=== PATIENT | female | born 1935 | race Caucasian/White ===

== ENCOUNTER → 2016-11-10 | Outpatient (CLI) | payer BC ==
[~2016-11-10] MED LIST: ASPI81TA28 PO; ATOR-24 PO; DAPS100T PO; DPS25 PO; HYDR-4079 PO; HYDR-600 PO; LEVO175T PO; LSN/20125 PO; SIMV20TA2 PO; SYN200 PO
--- NOTE | 2016-11-10 14:51 | DIAGNOSTIC IMAGING REPORT ---
RIGHT WRIST 3 VIEWS HISTORY: RIGHT WRIST PAIN Right COMPARISON: None. FINDINGS: No acute fracture or dislocation. Mild soft tissue swelling. 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 No acute fracture or dislocation. A few small well-corticated ossific densities along the dorsal and volar aspect of the wrist may be due to an old injury or chronic degenerative change. Severe degenerative changes at the STT and first carpometacarpal joint. 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 IMPRESSION: 1. No acute fracture or dislocation. 2. Chronic/degenerative changes as described above. 3. Scapholunate dissociation. Electronically signed by: Freddie Heath M.D. 11/10/2016 2:50 PM Dictated Date/Time: 11/10/2016 2:47 PM
== END | disposition home or self-care (01) ==
LOC: C.RDSM 14:40
PROVIDERS: ATTEND Physician Assistant
DX: S63.511A Sprain of carpal joint of right wrist, initial encounter (principal); X58.XXXA Exposure to other specified factors, initial encounter

== ENCOUNTER → 2017-03-21 | Day surgery (SDC) | payer BC ==
[~2017-03-21] VITALS: Ht 160 cm; Wt 77.2 kg
[~2017-03-21] MED LIST changes: +OPTIRAY 320 IV PRN; +PATIENT'S HEIGHT AND/OR WEIGHT NEEDED SCH; +SODIUM BICARBONATE 8.4% INJ 100 MEQ in STERILE WATER 1000 ML 1,000 ML IV SCH; +SODIUM CHLORIDE 0.9% 1000ML 1,000 ML IV SCH
[2017-03-21 06:35] VITALS: BP 137/58; PULSE 62; TEMP 36.5; O2SAT 93; Ht 160 cm; Wt 77.2 kg
[2017-03-21 09:44] VITALS: BP 167/65; PULSE 62; TEMP 36; O2SAT 94
--- NOTE | 2017-03-21 10:10 | DIAGNOSTIC IMAGING REPORT ---
NECK CTA HISTORY: Bilateral carotid artery stenosis with occlusion. TECHNIQUE: Multiaxial CT images of the neck were performed following the intravenous administration of contrast to evaluate the major cervical vessels. Maximum intensity projection images were also obtained. All measurements were calculated based on NASCET criteria. A dose lowering technique was utilized adhering to the principles of ALARA. COMPARISON STUDY: None. FINDINGS: Normal caliber aortic arch. Mild calcified plaque at the proximal left subclavian artery without significant stenosis. Severe calcified plaque at the right carotid bifurcation resulting in approximately 80% focal stenosis at the carotid bifurcation and origin of the right internal carotid artery. Mild to moderate calcified and noncalcified plaque within the proximal left internal carotid artery without significant stenosis. The left common carotid artery and proximal to mid right common carotid artery are widely patent. No significant stenosis or occlusion within the bilateral vertebral arteries. There are retention cysts within the left maxillary sinus. Visualized brain parenchyma and orbits are unremarkable. No pneumothorax. IMPRESSION: 1. Approximately 80% focal stenosis at the right carotid bifurcation and origin of the right internal carotid artery due to the calcified plaque. 2. No significant stenosis within the left carotid arteries or vertebral arteries. Electronically signed by: Freddie Heath M.D. 03/21/2017 10:09 AM Dictated Date/Time: 03/21/2017 10:00 AM
== END | disposition home or self-care (01) ==
LOC: C.MTU 06:29 → EDSTATUS 09:20
PROVIDERS: ATTEND Surgery Vascular Surgery
DX: I65.23 Occlusion and stenosis of bilateral carotid arteries (principal)

== ENCOUNTER 2017-05-17 05:59 | Inpatient (IN) | payer BC, OTHER ==
--- NOTE | 2017-04-13 14:15 | PAT Medication Instructions ---
Service Date Apr 13, 2017. Current Home Medication List Aspirin (Aspirin Ec), 81 MG PO QAM Atorvastatin (Lipitor), 1 TAB PO HS Dapsone (Dapsone), 50 MG PO QAM Hctz/Lisinopril (Zestoretic 20MG/12.5MG), 1 TAB PO QAM Hydrocodone/Acetaminophen 10MG/325MG (Wendell 10MG/325MG), 1 TAB PO Q4H PRN for Pain Levothyroxine Sodium (Synthroid), 175 MCG PO DAILYBB Medication Instructions For Your Scheduled Surgery - Hold the following medications the morning of surgery: Hctz/Lisinopril (Zestoretic 20MG/12.5MG), 1 TAB PO QAM - Take the following medications the morning of surgery with a sip of water OTHERWISE NOTHING TO EAT OR DRINK AFTER MIDNIGHT: Hydrocodone/Acetaminophen 10MG/325MG (Wendell 10MG/325MG), 1 TAB PO Q4H PRN for Pain (may take if needed up to 4 hours prior to surgery) Dapsone (Dapsone), 50 MG PO QAM (takes for skin) Aspirin (Aspirin Ec), 81 MG PO QAM Levothyroxine Sodium (Synthroid), 175 MCG PO DAILYBB - Take the following medications as scheduled the night before surgery: Hydrocodone/Acetaminophen 10MG/325MG (Wendell 10MG/325MG), 1 TAB PO Q4H PRN for Pain Atorvastatin (Lipitor), 1 TAB PO HS If you have any questions please call us at [phone] or [phone] or [phone]
--- NOTE | 2017-04-13 15:53 | DIAGNOSTIC IMAGING REPORT ---
CHEST 2 VIEWS ROUTINE CLINICAL HISTORY: Preoperative evaluation. COMPARISON STUDY: Chest radiograph September 21, 2011. FINDINGS: Lung volumes are normal. There is no pneumothorax or pleural effusion. Blunting of the left costophrenic angle is chronic. There is no evidence of pulmonary edema. Cardiomediastinal silhouette is normal. Lateral view demonstrates suspected gallstones within the gallbladder. IMPRESSION: 1. No acute cardiopulmonary findings. 2. Cholelithiasis. Electronically signed by: Otoniel Cisse M.D. 04/13/2017 3:52 PM Dictated Date/Time: 04/13/2017 3:51 PM
[2017-04-13 16:09] LABS: BUN/CREATININE RATIO 26.8 (10-20); CALCIUM 8.1 mg/dl (8.5-10.1); CREATININE 1.3 mg/dl (0.60-1.20); POTASSIUM 4.2 mmol/L (3.5-5.1)
[2017-04-13 16:11] LABS: PROTHROMBIN TIME (PATIENT) 10.3 SECONDS (9.0-12.0)
[2017-04-13 18:45] LABS: BASO % 1.1 %; BASO ABS # 0.08 K/uL (0-0.2); COMPLETE YES; EOS % 6.4 %; HEMATOCRIT 32.3 % (37-47); IG% 0.3 %; LYMPH % 21.4 %; LYMPH ABS # 1.63 K/uL (1.2-3.4); MEAN CELL VOLUME 99.4 fL (80-100); MEAN CORPUSCULAR HEMOGLOBIN 31.1 pg (25-34); MEAN CORPUSCULAR HGB CONC 31.3 g/dl (32-36); MONO % 8.4 %; NEUT % 62.4 %; PLATELET COUNT 196 K/uL (130-400); RED BLOOD COUNT 3.25 M/uL (4.2-5.4); WHITE BLOOD COUNT 7.61 K/uL (4.8-10.8)
[~2017-05-17] VITALS: Ht 160 cm; Wt 77.7 kg
[2017-05-17] VITALS (9 sets, daily range): BP systolic 132–158; BP diastolic 63–74; PULSE 69–83; TEMP 36.6–37; O2SAT 91–95; Ht 160 cm; Wt 77.7 kg
[~2017-05-17 05:59] MED LIST changes: +CEFAZOLIN 1000MG/55 ML D5W IV SCH; -DPS25 PO; -HYDR-600 PO; +LACTATED RINGER'S 1000ML 1,000 ML IV SCH; -OPTIRAY 320 IV PRN; -PATIENT'S HEIGHT AND/OR WEIGHT NEEDED SCH; -SIMV20TA2 PO; -SODIUM BICARBONATE 8.4% INJ 100 MEQ in STERILE WATER 1000 ML 1,000 ML IV SCH; -SODIUM CHLORIDE 0.9% 1000ML 1,000 ML IV SCH; +SODIUM CHLORIDE 0.9% 1000ML IV SCH; -SYN200 PO
[2017-05-17] MEDS ORDERED: SODIUM CHLORIDE 0.9% 1000ML 1,000 ML IV SCH (06:00)
[2017-05-17] MEDS ORDERED: LACTATED RINGER'S 1000ML 1,000 ML IV SCH (06:00)
--- NOTE | 2017-05-17 06:13 | History and Physical ---
History & Physical Date of Service May 17, 2017. History & Physical CC: Right internal carotid artery stenosis HPI: Mrs. Sequeira was seen for routine carotid artery stenosis surveillance and found to have a significant increase in the degree of stenosis of her right internal carotid artery by velocity criteria. We did recommend that she undergo a CTA for further evaluation, This showed a severe stenosis of the right internal carotid artery. She denies any complaints at this time including amaurosis, headaches, unilateral lower extremity weakness, numbness or tingling, difficulty speaking or swallowing, facial droop, chest pain, shortness of breath or other complaints. Her CTA does demonstrate a 90% stenosis of her right internal carotid artery. ALLERGIES: No known allergies. HOME MEDICATIONS: Reconciled on the chart and include the following: Acetaminophen/hydrocodone, aspirin, atorvastatin, dapsone, hydrochlorothiazide/ lisinopril and levothyroxine. PAST MEDICAL HISTORY: Positive for hypothyroidism, arthritis, hypertension, hyperlipidemia. PAST SURGICAL HISTORY: Positive for bilateral knee replacements, breast biopsy , growth removal from the right arm, knee surgery and tonsillectomy. SOCIAL HISTORY: Positive for a past history of tobacco use. The patient states she quit smoking cigarettes about 25 years ago. She denies alcohol or drug use and states that she does attempt to do walking for exercise frequently. FAMILY HISTORY: Positive for hypertension, diabetes and cancer as well as carotid disease. REVIEW OF SYSTEMS: Negative for fatigue, fevers, sweats, weight loss, exercise intolerance, abnormal moles or rashes, vision changes or photophobia, ear pain, sinus problems or sore throat, cough, shortness of breath, hemoptysis or wheezing, chest pain, palpitations, edema or syncope, abdominal pain, nausea, vomiting, diarrhea, constipation, dysuria, hematuria, rest pain, claudication, muscle weakness, headaches, dizziness, numbness or seizures. PHYSICAL EXAMINATION: Her vital signs are as follows: Blood pressure 134/60 in the right arm, 128/66 in the left, heart rate is 72, oxygen 92% on room air. The patient is 160 cm tall and weighs 75.1 kilograms. Constitutional: In general, patient is a healthy for age, well-nourished, well-developed, well kept relatively fit elderly female in no acute distress. She ambulates without assistance and is active, alert and oriented x4 with normal recent and remote memory. Head is normocephalic and atraumatic. Eyes are EOMI. ENMT exam demonstrates no hearing loss, rhinorrhea or pharyngeal erythema. Neck is supple , nontender with midline trachea without masses or crepitus. Lung exam demonstrates no dyspnea. They are clear to auscultation bilaterally, although slightly decreased throughout. Cardiovascular exam demonstrates a nondisplaced apical impulse with a regular rate and rhythm with a 2/6 systolic ejection murmur noted. Her peripheral pulses are full and equal in all extremities unless otherwise noted, specifically are normal in her carotid, brachial, radial and femoral pulses. Bilateral lower extremities distal pulses are +2. She has brisk capillary refill, no sign of distal ischemia. The patient does demonstrate a right-sided carotid bruit, none on the left. No abdominal or femoral bruits are noted. Abdomen is soft and nontender with normoactive bowel sounds in all 4 quadrants without guarding or rebound. There is no flank or CVA tenderness. Musculoskeletal exam demonstrates normal tone and strength for age. Bilateral upper extremities demonstrate no cyanosis, edema, clubbing, varicosities or ulcers. Bilateral lower extremities demonstrate no cyanosis, edema, clubbing, varicosities or ulcers. Neurologically, patient has grossly intact cranial nerves and grossly intact sensation without any focal deficits. Imp: Severe stenosis right internal carotid artery. Plan: Patient is admitted for a right CEA. I have discussed the risks options and benefits of the procedure with the patient. The patient understands the risks options and benefits and agrees to the procedure.
[2017-05-17] MEDS ORDERED: BUPIVACAINE/EPINEPHRINE 0.5% MPF 1:200,000 30 ML VIAL ONE (06:51)
[2017-05-17] MEDS ORDERED: LIDOCAINE HCL 1% 20 ML VIAL ONE (06:51)
[2017-05-17] MEDS ORDERED: THROMBIN FOR SOLN 20000 UNIT KIT ONE (06:51)
[2017-05-17] MEDS ORDERED: HEPARIN SOD (PORCINE) 1000 UNIT/ML 10 ML VIAL ONE ×2 (06:51→07:07)
[2017-05-17] MEDS ORDERED: GELATIN SPONGE 12-7MM ONE (06:51)
[2017-05-17] MEDS ORDERED: CEFAZOLIN SOD 1 GM VIAL ONE (06:51)
[2017-05-17] MEDS ORDERED: PROPOFOL IV EMULSION 10 MG/ML 20 ML VIAL IV ONE (07:06)
[2017-05-17] MEDS ORDERED: LIDOCAINE HCL 2% 2 ML VIAL (20MG/ML) ONE (07:06)
[2017-05-17] MEDS ORDERED: ONDANSETRON INJ 2 MG/ML 2 ML VIAL ONE (07:06)
[2017-05-17] MEDS ORDERED: ROCURONIUM BROMIDE 10 MG/ML 5 ML VIAL IV ONE (07:06)
[2017-05-17] MEDS ORDERED: GLYCOPYRROLATE INJ 0.2 MG/ML VIAL ONE ×2 (07:06)
[2017-05-17] MEDS ORDERED: FENTANYL CITRATE INJ 50 MCG/1 ML 2 ML VIAL ONE ×2 (07:06)
[2017-05-17] MEDS ORDERED: NEOSTIGMINE METHYLSULFATE 5 MG/5 ML SYR ONE (07:06)
[2017-05-17] MEDS ORDERED: DEXAMETHASONE SOD INJ 4 MG/ML VIAL ONE (07:06)
[2017-05-17] MEDS ORDERED: LARYING-O-JET KIT (LTA) ONE ×2 (07:07)
[2017-05-17] MEDS ORDERED: NITROGLYCERIN 5 MG/ML 10 ML VIAL ONE (07:07)
[2017-05-17] MEDS ORDERED: SODIUM CHLORIDE 0.9% INJ 10 ML VIAL ONE (07:07)
[2017-05-17] MEDS ORDERED: PHENYLEPHRINE HCL INJ 10 MG/ML VIAL ONE (07:07)
[2017-05-17] MEDS ORDERED: HYDROmorphone INJ 2 MG/ML SYR/VIAL ONE (07:08)
[2017-05-17] MEDS ORDERED: GELATIN SPONGE SZ 100 ONE (07:15)
[2017-05-17] MEDS ORDERED: SCOPOLAMINE 1.5 MG TDSY TD ONE ×2 (07:19→09:15)
[2017-05-17] MEDS ORDERED: NURSING VERBAL MED ORDER ONE (07:30)
--- NOTE | 2017-05-17 07:55 | History & Physical Bridge Note ---
H&P Re-Evaluation Bridge Note: I have examined the patient, reviewed the History & Physical and in the interval since the performance of the History & Physical I have noted the following changes of clinical significance: No changes noted
[2017-05-17] MEDS: CEFAZOLIN 1000MG/55 ML D5W IV SCH ×2 (07:58→13:50)
[2017-05-17 08:28] LABS: BUN/CREATININE RATIO 26.6 (10-20); CALCIUM 8.2 mg/dl (8.5-10.1); CREATININE 1.4 mg/dl (0.60-1.20); POTASSIUM 4.4 mmol/L (3.5-5.1)
[2017-05-17] MEDS ORDERED: EpHEDrine SULFATE 50MG/5ML SYR ONE (08:38)
--- NOTE | 2017-05-17 10:58 | [facility] Post Operative Brief Note ---
Immediate Operative Summary Operative Date May 17, 2017. Pre-Operative Diagnosis Severe stenosis right internal carotid artery Post-Operative Diagnosis Severe stenosis right internal carotid artery Procedure(s) Performed Right Carotid Endarterectomy Surgeon Dr. Langley Ice Cream Vendor Surgeon(s) Marilin Villafana PA-C/ Dr. Palacios Estimated Blood Loss 150 Findings severe stenosis right carotid Specimens plaque Anesthesia Gen Complication(s) None Disposition Recovery Room / PACU
[2017-05-17] MEDS ORDERED: MoRPHine SULFATE 4 MG/ML 1 ML CARP\\VIAL IV PRN (11:15)
--- NOTE | 2017-05-17 12:28 | OPERATIVE REPORT ---
DATE OF OPERATION: 05/17/2017 PREOPERATIVE DIAGNOSIS: Right carotid artery stenosis. POSTOPERATIVE DIAGNOSIS: Same. PROCEDURE: Right carotid endarterectomy. SURGEON: Dr. Grayson Langley. BLANCHARD GRINDER OPERATOR: Dr. Melly Palacios and Marilin Galvin PA-C. ANESTHESIA: General endotracheal anesthesia. FLUIDS: 1100 crystalloid. URINE OUTPUT: Not recorded. ESTIMATED BLOOD LOSS: 150 mL. COMPLICATIONS: None apparent. CONDITION: Stable to PACU. INDICATIONS: Ms. Sequeira is an 81-year-old female with high grade right carotid artery stenosis. She was advised of the risks and benefits of undergoing right carotid endarterectomy and agrees to undergo the said procedure. DESCRIPTION OF PROCEDURE: The patient was brought into the operative suite. She was prepped and draped in usual fashion. Timeout occurred. Incision was made anterior to her sternocleidomastoid muscle on the right and extended posteriorly towards the ear. The subcutaneous tissue was divided. The posterior platysma muscle was divided. The common carotid artery was located and dissected out. The facial vein was identified and divided after being tied with silk ties. The bifurcation was identified. The hypoglossal was relatively low lying. The smaller artery and vein associated with this were ligated and divided in order the allow great exposure and movement of the hypoglossal nerve. The ansa cervicalis had to be ligated distal to the hypoglossal artery to help mobilize the hypoglossal nerve upwards. The posterior belly of the digastric was divided to provide additional exposure. The superior thyroid and external carotid artery were looped and retracted away. This allowed visualization of the internal carotid, which was dissected out. The patient was given 6000 units of heparin. After 2 minutes, clamps were applied. Arteriotomy was made. This was extended with Watson up into the internal carotid artery. Jameson shunt was then place distally. There was good back bleeding from this. The junction was then placed proximally into the common carotid artery and this was secured with Jameson clamps. Endarterectomy was then performed utilizing a freer-elevator until the plaque was mobilized circumfrentially. Watson were used proximally to transect the plaque. An inadvertent arteriotomy was performed along the posterior wall when removing the plaque. which was repaired with running 6-0 prolene suture. The carotid was evaluated for any loose bits of plaque, which were removed with plaque pickers. Then a PTFE patch was sewn in using CV6 suture in a running fashion. Prior to concluding the anastomosis, the shunt was removed and the external, common and internal carotid arteries were back- bled The patch end anastomosis was then completed. Prior to the last stitches being placed all the arteries were backbled once again. The external carotid clamp was removed, the common clamp was removed. Prior to removal of the internal carotid clamp the common was allowed to flush into the external. The internal carotid artery clamp was removed. The anastomosis was inspected for hemostasis. Repair sutures were placed. A thrombin Gelfoam was placed over this. Hemostasis was obtained and the incision was closed with a running 3-0 Vicryl and 4-0 Vicryl subcuticular and Dermabond. The patient was then awakened from anesthesia, she was able to move all extremities and was taken to the PACU in stable condition. Dr. Grayson Langley was present for the entirety of this case. I attest to the content of the Intraoperative Record and any orders documented therein. Any exceptions are noted below. ARA
--- NOTE | 2017-05-17 12:28 | Anesthesiology Progress Note ---
Anesthesia Post Op Note Date & Time May 17, 2017 at 12:28 Vital Signs Pain Intensity: 0 Vital Signs Past 12 Hours Date Time Temp Pulse Resp B/P (MAP) Pulse Ox O2 Delivery O2 Flow Rate FiO2 05/17/17 12:17 36.2 05/17/17 12:12 79 20 05/17/17 12:12 79 20 93 05/17/17 12:11 145/50 05/17/17 12:07 80 23 93 05/17/17 12:07 80 23 05/17/17 12:06 152/52 05/17/17 12:02 81 18 05/17/17 12:02 81 18 92 05/17/17 12:01 78 14 148/55 92 05/17/17 12:01 78 14 05/17/17 11:56 81 19 05/17/17 11:56 81 19 138/57 94 05/17/17 11:51 84 13 152/52 95 05/17/17 11:51 84 13 05/17/17 11:50 84 15 95 05/17/17 11:50 84 15 05/17/17 11:46 148/54 05/17/17 11:45 83 17 05/17/17 11:45 83 17 95 05/17/17 11:42 142/60 05/17/17 11:40 86 18 94 05/17/17 11:40 87 18 05/17/17 11:37 109/53 05/17/17 11:35 98 19 05/17/17 11:35 96 19 95 05/17/17 11:31 166/68 05/17/17 11:30 36.0 97 16 134/62 95 Oxymask 10 05/17/17 06:36 36.9 69 18 136/63 93 Room Air Notes Mental Status: alert / awake / arousable, participated in evaluation Pt Amnestic to Procedure: Yes Nausea / Vomiting: adequately controlled Pain: adequately controlled Airway Patency, RR, SpO2: stable & adequate BP & HR: stable & adequate Hydration State: stable & adequate Anesthetic Complications: no major complications apparent
[2017-05-17] MEDS: CEFAZOLIN IV 1,000 MG in DEXTROSE 5% 50ML 50 ML IV SCH (18:37)
[2017-05-17] MEDS: D5W AND 1/2NSS 1,000 ML IV SCH (18:40)
[2017-05-17] MEDS: ENOXAPARIN 30 MG/0.3 ML SYR SQ SCH (19:42)
[2017-05-17] MEDS ORDERED: ATORVASTATIN 40 MG TAB PO SCH (21:00)
[2017-05-17] MEDS: OXYCODONE/ACETAMINOPHEN 5-325 TAB PO PRN (21:24)
[2017-05-17] MEDS: ONDANSETRON INJ 2 MG/ML 2 ML VIAL IV PRN (21:31)
[2017-05-18 00:01] VITALS: O2SAT 93
[2017-05-18] MEDS: OXYCODONE/ACETAMINOPHEN 5-325 TAB PO PRN (01:25)
[2017-05-18] MEDS: D5W AND 1/2NSS 1,000 ML IV SCH ×2 (01:26→09:14)
[2017-05-18] MEDS: CEFAZOLIN IV 1,000 MG in DEXTROSE 5% 50ML 50 ML IV SCH ×2 (03:00→03:31)
[2017-05-18 04:30] VITALS: BP 150/68; PULSE 75; TEMP 37; O2SAT 92
[2017-05-18] MEDS: ONDANSETRON INJ 2 MG/ML 2 ML VIAL IV PRN (04:54)
[2017-05-18] MEDS ORDERED: NURSING VERBAL MED ORDER ONE (05:15)
[2017-05-18] MEDS ORDERED: HYDROCODONE/ACETAMI 10/325 TAB PO PRN (05:15)
[2017-05-18] MEDS ORDERED: LEVOTHYROXINE 175 MCG TAB PO SCH (06:00)
[2017-05-18 08:37] VITALS: BP 168/70; PULSE 66; TEMP 36.5; O2SAT 92
[2017-05-18] MEDS ORDERED: DAPSONE 25 MG TAB PO SCH (09:00)
[2017-05-18] MEDS ORDERED: ASPIRIN 81 MG ECTAB PO SCH (09:00)
[2017-05-18] MEDS ORDERED: LISINOPRIL/HCTZ 20/12.5MG TAB PO SCH (09:00)
[2017-05-18] MEDS: ENOXAPARIN 30 MG/0.3 ML SYR SQ SCH (09:03)
[2017-05-18 11:16] VITALS: BP 173/71; PULSE 60; TEMP 36.8; O2SAT 95
[2017-05-18] MEDS ORDERED: COUGH DROP (SUGAR FREE) LOZ 24 LOZ/1 BOX ONE (11:20)
[2017-05-18] MEDS ORDERED: NURSING DECISION MEDICATION ORDER SCH (11:30)
[2017-05-18] MEDS ORDERED: COUGH DROP (SUGAR FREE) LOZ 24 LOZ/1 BOX PO PRN (12:00)
--- NOTE | 2017-05-18 12:08 | Anesthesiology Progress Note ---
Anesthesia Post Op Note Date & Time May 18, 2017 at 12:07 Vital Signs Pain Intensity: 1 Vital Signs Past 12 Hours Date Time Temp Pulse Resp B/P (MAP) Pulse Ox O2 Delivery O2 Flow Rate FiO2 05/18/17 11:31 Room Air 05/18/17 11:16 36.8 60 16 173/71 (105) 95 Room Air 05/18/17 08:37 36.5 66 16 168/70 (102) 92 Room Air 05/18/17 08:00 Room Air 05/18/17 04:30 37.0 75 16 150/68 (95) 92 Room Air 05/18/17 04:30 92 Room Air Notes Mental Status: alert / awake / arousable, participated in evaluation Pt Amnestic to Procedure: Yes Nausea / Vomiting: adequately controlled Pain: adequately controlled Airway Patency, RR, SpO2: stable & adequate BP & HR: stable & adequate Hydration State: stable & adequate Anesthetic Complications: no major complications apparent pt c/o difficulty swallowing food with breakfast. Denied ever having a sore throat postoperatively. Dr. Langley to be notified.
[2017-05-18] MEDS ORDERED: HYDR-4079 PO (14:49)
--- NOTE | 2017-05-18 14:51 | Discharge Instructions ---
Discharge Instructions Date of Service May 18, 2017. Admission Reason for Admission: Right Internal Carotid Artery Stenosis Discharge Discharge Diagnosis / Problem: post Right carotid endarterectomy Discharge Goals Goal(s): Therapeutic intervention, Prevent Disease Progression Activity Recommendations Activity Limitations: per Instructions/Follow-up section . Instructions / Follow-Up Instructions / Follow-Up SPECIAL CARE INSTRUCTIONS: Medications: * Continue to take Aspirin as directed. Incision Care: * You may shower, but do not rub incision. You may let the warm soapy water run over it. Be sure to dry the incision well after bathing. * Do not shave directly over the incision until it is healed. * DO NOT IMMERSE THE INCISION IN A TUB/POOL/etc. UNTIL HEALED. Restrictions: * Do not drive for at least one week or if you are still taking any narcotic pain medication. * Do not lift anything heavier than a gallon of milk for one week after going home. Possible Complications: * Numbness - It is normal to have some numbness around the incision. Numbness can extend beyond the incision to areas of the neck, ear and face. The numbness is due to bruising of nerves during the surgery and will gradually improve over a period of months. * Hoarseness/Difficulty Speaking and Swallowing - The bruising of nerves in the neck can also cause a hoarse voice, difficulty speaking or swallowing. This may improve over time, HOWEVER, if it continues for more than a few days please contact our office ([phone]). * Excessive Swelling - There will be some swelling immediately after surgery which usually resolves within one week. If you notice that the swelling is getting worse, notify your surgeon ([phone]). * Drainage/Bleeding - If there is any drainage or bleeding, it should be a very small amount (less than a teaspoon per day). If you have excessive bleeding or drainage from the incision, call your surgeon ([phone]) right away. ACTIVATION OF EMERGENCY MEDICAL SYSTEM: Call 911, immediately, if you experience any of the following: Warning Signs and Symptoms of Stroke: * Sudden numbness or weakness of the face, arm or leg, especially on one side of the body * Sudden confusion, trouble speaking or understanding * Sudden trouble seeing in one or both eyes * Sudden trouble walking, dizziness, loss of balance or coordination * Sudden severe headache with no cause Do not delay calling 911 if you experience any warning signs or symptoms of a stroke. Delay in seeking medical attention may affect what treatments can be given to you. Risk Factors for Stroke: You can reduce your chances of stroke by working with your medical provider to adopt a healthy lifestyle. Some specific ways to lower your chance of stroke are: * If you are a smoker, now is the time to stop smoking cigarettes * If you are diabetic, improve the control of your blood sugars * Avoid excessive amounts of alcohol * Control high blood pressure * Lose weight if you are overweight * Be sure to lead an active lifestyle * Eat a healthy diet low in salt, cholesterol and fat You should know about other risk factors for stroke that you are unable to control. These include: * Age 55 years or older * Male gender * Certain racial groups: , or / * Family History of Stroke, Mini stroke or Heart Attack * Sickle Cell Disease You will be receiving a call from the Vascular Surgery Nurse after you are discharged. FOLLOW UP VISIT: It is important for you to keep your follow up appointments with your medical provider. Keep any scheduled doctor appointments. No driving x 1 week. May shower and dry surgical area gently. Follow up with Dr Langley or Marilin Galvin PA-C, in 2 weeks. Call [phone] for appt. Current Hospital Diet Patient's current hospital diet: AHA Diet (Heart Healthy) Discharge Diet Recommended Diet: AHA Diet (Heart Healthy) Procedures Procedures Performed: Right Carotid Endarterectomy Pending Studies Studies pending at discharge: no Medical Emergencies . Who to Call and When: Medical Emergencies: If at any time you feel your situation is an emergency, please call 911 immediately. . Non-Emergent Contact Non-Emergency issues call your: Surgeon . "Provider Documentation" section prepared by Marilin Galvin. . VTE Core Measure Inpt VTE Proph given/why not?: Enoxaparin (Lovenox)[facility] Drug Monitoring Program Search Results: patient reviewed within database, no issues identified
--- NOTE | 2017-05-18 14:56 | Progress Note ---
Progress Note Date of Service: May 18, 2017. Subjective 81 yo f with hx of HTN, POD #1 after R CEA, seen in f/u today. Pt admits pain R neck, sore throat, mild fatigue. Denies MELTON, vision changes, extremity weakness, confusion, chest pain, other complaints. Objective Vital Signs Vital Signs Past 12 Hours Date Time Temp Pulse Resp B/P (MAP) Pulse Ox O2 Delivery O2 Flow Rate FiO2 05/18/17 14:26 Room Air 05/18/17 11:40 Room Air 05/18/17 11:31 Room Air 05/18/17 11:16 36.8 60 16 173/71 (105) 95 Room Air 05/18/17 08:37 36.5 66 16 168/70 (102) 92 Room Air 05/18/17 08:00 Room Air 05/18/17 04:30 37.0 75 16 150/68 (95) 92 Room Air 05/18/17 04:30 92 Room Air Exam CONST: A&O x4, NAD, generally healthy appearing female NECK: R neck with significant ecchymosis extending across trachea, hematoma only near incision, not against trachea. Incision C/D/I. 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 Otherwise, no focal deficits CHEST: RRR lungs CTAB ABD: soft nontender, + bs x 4 quad EXT: RAYMOND Intake & Output 8-Hour Column 05/18/17 05/19/17 05/19/17 16:00 00:00 08:00 Intake Total 1351 ml Output Total 300 ml Balance 1051 ml 24-Hour Column 05/19/17 08:00 Intake Total 1351 ml Output Total 300 ml Balance 1051 ml ASSESSMENT and PLAN: s/p DARREN ORTIZ Pt doing well postop. Ok for d/c home today. Will see in office in 2 wks.
[2017-05-18 15:39] VITALS: BP 173/71; PULSE 60; TEMP 36.8; O2SAT 95
[2017-05-18 16:21] VITALS: BP 175/80; PULSE 65; TEMP 36.9; O2SAT 94
--- NOTE | 2017-05-19 23:28 | DISCHARGE SUMMARY ---
ADMISSION DIAGNOSIS: Severe right internal carotid artery stenosis. DISCHARGE DIAGNOSES: 1. Status post right carotid endarterectomy. 2. Severe right internal carotid artery stenosis. DISCHARGE CONDITION: Stable. CONSULTATIONS IN THE HOSPITAL: Included none. PROCEDURES IN THE HOSPITAL: Included her right carotid endarterectomy which was performed on 05/17/2017 with an EBL of 150 mL and no significant complication. HISTORY OF PRESENT ILLNESS: Ms. Sequeira is an 81-year-old female who was initially seen for routine carotid artery stenosis. Surveillance ultrasound demonstrated significant increase in the degree of stenosis of her right internal carotid artery. She underwent CTA for further evaluation, which demonstrated severe stenosis of her right internal carotid artery of over 90%. She was completely asymptomatic. The recommendation was made to have the patient undergo right carotid endarterectomy procedure in order to prevent the risk of stroke. The risks, benefits and alternatives were discussed with the patient as well, and she expressed understanding and agreement to proceed. HOSPITAL COURSE: The patient was admitted on 05/17/2017 after undergoing her right carotid endarterectomy. As I said, this was performed without significant complications and an EBL of 150 mL. Labs and vital signs remained essentially stable. She had no focal neurological deficits and continued to improve day 1 postop. She did have a mild headache in the morning on day 1 and this resolved by noon and she was anxious to leave and had no further problems. She was felt to be stable enough for discharge. PHYSICAL EXAMINATION: VITAL SIGNS: On the day of discharge, her vital signs were as follows: Blood pressure of 173/71, pulse of 60, respiratory rate of 16 and temperature of 36.8 with pulse oximetry of 95% on room air. CONSTITUTIONAL: The patient is a [id number] appearing, well-nourished, well-developed elderly female in no acute distress. She ambulated without assistance and is active, alert and oriented x4. HEENT: Her head is normocephalic and atraumatic. She did appear to have a slight deficit to the inferolateral portion of her lips consistent with marginal mandibular nerve injury. She has no facial droop noted. NECK: Supple on the left. Her trachea is midline. Her right neck surgical incision did demonstrate a firm hematoma directly under the incision and some softer ecchymosis extending in the subcutaneous tissues. HEART: Regular rate and rhythm. LUNGS: Clear. ABDOMEN: Soft, nontender. EXTREMITIES: She movies her upper and lower extremities equally. Her peripheral pulses are normal in her brachial, radial and femoral pulses. Lower extremity distal pulses are +2 with brisk capillary refill. No sign of distal ischemia. NEUROLOGIC: She has no focal deficits. DIET UPON DISCHARGE: Should be a low-cholesterol AHA diet. MEDICATIONS: Reconciled on the chart and are as per her discharge instructions. FOLLOWUP: Dr. Langley or his PA, Marilin Galvin, in the office within 2 weeks for reevaluation. She is advised to call the office with any other questions.
== END 2017-05-18 16:23 | disposition home or self-care (01) | DRG 39 ==
LOC: C.ACU 05:59 → C.MSICU 11:10 → ENRESERV 12:25 → C.2T 17:47
PROVIDERS: ADMIT Surgery Vascular Surgery; ATTEND Surgery Vascular Surgery
PROC: 03CK0ZZ Extirpation of Matter from Right Internal Carotid Artery, Open Approach (ICD-10-PCS; principal; 2017-05-17 08:00)
PROC: 03UK0JZ Supplement Right Internal Carotid Artery with Synthetic Substitute, Open Approach (ICD-10-PCS; principal; 2017-05-17 08:00)
DX: I65.21 Occlusion and stenosis of right carotid artery (principal); R51 Headache; I10 Essential (primary) hypertension; E03.9 Hypothyroidism, unspecified; E78.5 Hyperlipidemia, unspecified; M19.90 Unspecified osteoarthritis, unspecified site; Z96.653 Presence of artificial knee joint, bilateral; Z87.891 Personal history of nicotine dependence; Z79.82 Long term (current) use of aspirin; Z79.899 Other long term (current) drug therapy

== ENCOUNTER → 2017-06-09 | Outpatient (CLI) | payer BC ==
[~2017-06-09] MED LIST changes: -CEFAZOLIN 1000MG/55 ML D5W IV SCH; -LACTATED RINGER'S 1000ML 1,000 ML IV SCH; -SODIUM CHLORIDE 0.9% 1000ML IV SCH
--- NOTE | 2017-06-09 15:52 | MAMMOGRAPHY REPORT ---
BILATERAL DIGITAL SCREENING MAMMOGRAM WITH CAD: 06/09/2017 CLINICAL HISTORY: Routine screening. Patient has no complaints. TECHNIQUE: Current study was also evaluated with a Computer Aided Detection (CAD) system. Bilateral CC and MLO views were obtained. COMPARISON: Comparison is made to exams dated: 05/09/2016 mammogram, 05/06/2015 mammogram, 11/14/2014 m ammogram, 05/16/2014 mammogram, 05/05/2014 mammogram, and 05/01/2013 mammogram - [facility] enter. BREAST COMPOSITION: There are scattered areas of fibroglandular density in both breasts. FINDINGS: No suspicious masses, calcifications, or areas of architectural distortion are noted in ei ther breast. There has been no significant interval change compared to prior exams. Bilateral benign -appearing calcifications are not significantly changed. A linear scar marker denotes a scar on the left anterior breast. IMPRESSION: ACR BI-RADS CATEGORY 2: BENIGN There is no mammographic evidence of malignancy. A 1 year screening mammogram is recommended. The pa tient will receive written notification of the results. Approximately 10% of breast cancers are not detected with mammography. A negative mammographic report should not delay biopsy if a clinically suggestive mass is present. Ashley Burciaga M.D. /:06/09/2017 14:28:25 Special Education Paraprofessional: Jennifer Morgan [facility] letter sent: Normal 1/2 BI-RADS Code: ACR BI-RADS Category 2: Benign
== END | disposition home or self-care (01) ==
LOC: C.MAMM 13:59
PROVIDERS: ATTEND Family Medicine
DX: Z12.31 Encounter for screening mammogram for malignant neoplasm of breast (principal)